=== PATIENT | female | born 2000 | race Caucasian/White ===

== ENCOUNTER 2022-04-23 10:21 | Emergency (ER) | payer OTHER ==
[~2022-04-23] VITALS: Ht 160 cm; Wt 52.2 kg
[2022-04-23] MEDS ORDERED: PREDNISONE50 MG PO (13:20)
== END 2022-04-23 13:15 | disposition home or self-care (01) ==
LOC: ED 10:21
DX: T78.40XA Allergy, unspecified, initial encounter (principal); X58.XXXA Exposure to other specified factors, initial encounter